=== PATIENT | male | born 2005 | race Caucasian/White ===

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

== ENCOUNTER 2024-11-02 17:10 | Emergency (ER) | payer MEDICAID ==
[~2024-11-02] VITALS: Ht 185.4 cm; Wt 94.2 kg
[~2024-11-02 17:10] MED LIST changes: +ALBU6.7H14 INH; -ALBU6.7H9 INH; +ONDA-243 PO; -ONDA4TAB12 PO
[2024-11-02 17:16] VITALS: BP 120/57; PULSE 96; RESP 16; O2SAT 97
--- NOTE | 2024-11-02 17:48 | Physician Documentation ---
HPI ~ General Chief Complaint: Medication Request Stated Complaint: MED REQUEST Time Seen by MD: 17:45 Primary Medical Doctor: Nanda History of Present Illness HPI Comments This is a 18-year-old male who presents to the emergency department requesting a penicillin injection. he reports that when he was entering the couple of years ago he had a scratchy throat, and was unaware that it was strep. He ended up with a strep endocarditis. He typically is seen at [facility], and reports that he has seen Infectious Disease Dr. Mullen in the past. He has a picture on his phone of an RX from Dr. Mullen indicating the need for Bicillin monthly x one yr. He reports that he will actually need this course of treatment until age 28[age]5 yrs to complete a 10 yr course. Today, he feels overall well, but does note that he has somewhat of a sore throat. He denies any chills or fever, chest pain or shortness of breath, nausea, vomiting, diarrhea, abdominal pain. Medication Reconciliation Allergies: Coded Allergies: No Known Allergies (Unverified , 11/12/19) Scheduled Albuterol Sulfate (Proventil Hfa), 2 PUFFS INH Q4H Cetirizine HCl (Zyrtec), 1 TAB PO DAILY, (Reported) Scheduled PRN Diphenhydramine Hcl (Benadryl), 25 MG PO for allergies, (Reported) ONDANSETRON ODT 4mg tablet (Ondansetron Odt), 1 TABLET PO Q6H PRN for nausea/vomiting Past Medical History Past Medical History: No Pertinent History Past Surgical History: noncontributory Alcohol Use: None Drug Use: none Lives with: Family Lives In: Home Occupation: student Review of Systems ROS As stated above in the HPI, otherwise all systems are reviewed and negative. Physical Exam Physical Exam Vital Signs: Temperature: 99.1, Source: Oral, Heart Rate: 96, Respiratory Rate: 16, BP: 120/57, Pulse Oximetry: 97, Weight: 94.200 Oxygen Flow Rate: 0 Physical Exam General: Alert, no apparent distress. Neck: Full range of motion. Respiratory: Lungs clear, no respiratory distress. Chest: No accessory muscle use. Cardiovascular: Regular rate and rhythm, no murmurs. Gastrointestinal: Soft, nontender, nondistended. Bowels sounds present. Extremities: Normal range of motion, no deformity. Neurologic: Oriented x4. Psychiatric: Normal mood and affect. Skin: Normal color, warm and dry. No edema, no ecchymosis. Progress Results/Orders Results/Orders Completed Orders - TIANNA ALLEN NP Penicillin G Benzathine (Bicillin L-A) (11/02/24 18:30) Vital Signs 11/02/24 11/02/24 17:16 18:32 Temp 99.1 99.1 Pulse 96 Resp 16 B/P (MAP) 120/57 Pulse Ox 97 O2 Flow Rate 0 Laboratory Tests Test 11/02/24 17:22 Group A Streptococcus Rapid Negative Medical Decision Making Differential Dx:Considerations: Include: Adverse circumstances, Economic, Psychosocial, Medical services unavail., Medication refill, Medication non- compliance Additional Comment Well appearing patient. No murmur or fever on exam. Spoke with tongue and quarter stitcher ID Dr. Howe who recommended one time dose of Bicillin and this was ordered. Departure Time of Disposition: 18:28 Disposition: 01 HOME / SELF CARE / HOMELESS Impression: Primary Impression: Endocarditis Additional Impression: Medication requested Discharge Instructions: Endocarditis Additional Instructions: Please make a followup with Dr. Mullen to figure out where to go from here regarding your ongoing need for antibiotic treatment for endocarditis. Dr. Mullen was not tongue and quarter stitcher today, so I was unable to reach him. Referrals: NO PRIMARY CARE PROVIDER (PCP) Education Educated: Patient Educated regarding: diagnosis, treatment, prognosis, need for follow up Signature Scribe Signature: no scribe Attestation: The note accurately reflects work and decisions made by me.Tianna Maddox NP 11/02/24 18:30 TIANNA ALLEN NP Nov 02, 2024 17:48
[2024-11-02 17:54] LABS: STREP A SCREEN NEGATIVE (Neg)
[2024-11-02 18:32] VITALS: TEMP 99.1
[2024-11-02] MEDS: PENICILLIN G BENZATHINE 2,400,000 UNIT/4 ML SYRINGE IM ONE (19:16)
== END 2024-11-02 19:39 | disposition home or self-care (01) ==
LOC: ER 17:10
DX: I38 Endocarditis, valve unspecified (principal)
CPT/HCPCS: 87081; 87880; 96372; 99283; J0561